=== PATIENT | female | born 1975 | race Caucasian/White ===

== ENCOUNTER 2020-12-17 14:06 | Emergency (ER) | payer OTHER ==
--- NOTE | 2020-12-17 15:34 | EDM.PDOC ---
ED HPI GENERAL MEDICAL PROBLEM - General Chief Complaint: Chest Pain Stated Complaint: COVID POSITIVE Time Seen by Provider: 12/17/20 14:45 Source of Information: Reports: Patient History Limitations: Reports: No Limitations - History of Present Illness INITIAL COMMENTS - FREE TEXT/NARRATIVE: 45-year-old female, unvaccinated for Covid, presents with 1 week of worsening cough and shortness of breath with positive Covid test. O2 sats are still normal but her respiratory rate is 30-31, she is having pleuritic-like chest pain, weakness and feels awful. Diaphoretic and dizzy. No nausea or vomiting, mild diarrhea. Decreased appetite. Onset: Gradual Duration: Day(s): (7 days of symptoms) Associated Symptoms: Reports: Chest Pain (Pleuritic-like chest pain, pain with breathing), Cough, Fever/Chills, Malaise, Shortness of Breath, Weakness Chest Pain Score (Numeric/FACES): 8 - Related Data Allergies Allergy/AdvReac Type Severity Reaction Status Date / Time No Known Allergies Allergy Verified 12/17/20 14:35 Home Meds: Home Meds Omeprazole 40 mg PO DAILY 12/17/20 [History] Simvastatin [Zocor] 10 mg PO DAILY 12/17/20 [History] atorvaSTATin [Lipitor] 10 mg PO DAILY 12/17/20 [History] busPIRone [Buspar] 10 mg PO BEDTIME 12/17/20 [History] hydroCHLOROthiazide [Hydrochlorothiazide] 12.5 mg PO DAILY 12/17/20 [History] norgestimate-ethinyl estradioL [Estarylla 0.25-0.035 mg Tablet] 1 each PO DAILY 12/17/20 [History] Past Medical History Cardiovascular History: Reports: Hypertension - Infectious Disease History Infectious Disease History: Reports: Chicken Pox Social & Family History - Tobacco Use Tobacco Use Status *Q: Never Tobacco User - Caffeine Use Caffeine Use: Reports: None - Recreational Drug Use Recreational Drug Use: No ED ROS GENERAL - Review of Systems Review Of Systems: See Below Constitutional: Reports: Fever, Chills, Malaise, Decreased Appetite HEENT: Denies: Throat Pain Respiratory: Reports: Shortness of Breath, Pleuritic Chest Pain, Cough. Denies: Sputum Cardiovascular: Reports: Chest Pain. Denies: Palpitations GI/Abdominal: Reports: Diarrhea, Nausea. Denies: Vomiting : Reports: No Symptoms Musculoskeletal: Reports: Muscle Pain (Generalized muscle aches) Skin: Denies: Rash Neurological: Reports: Dizziness, Weakness Psychiatric: Reports: No Symptoms ED EXAM, GENERAL - Physical Exam Exam: See Below Exam Limited By: No Limitations General Appearance: Alert, No Apparent Distress (Looks uncomfortable but in no distress, O2 saturations 97% and afebrile.) Eye Exam: Bilateral Eye: Normal Inspection Head: Atraumatic Neck: Supple, Non-Tender Respiratory/Chest: Other (Diffuse decreased breath sounds but no significant wheezes, rales or rhonchi) Cardiovascular: Regular Rate, Rhythm, Tachycardia GI/Abdominal: Soft, Non-Tender Extremities: No: Pedal Edema Neurological: Alert, Oriented Psychiatric: Flat Affect Skin Exam: Warm, Diaphoretic Course - Vital Signs Last Recorded V/S: Last Vital Signs Temp 97.6 F 12/17/20 16:46 Pulse 114 H 12/17/20 17:23 Resp 25 H 12/17/20 17:23 BP 123/83 12/17/20 17:23 Pulse Ox 98 12/17/20 17:23 - Orders/Labs/Meds Orders: Active Orders 24 hr Category Date Time Status Chest 1V Frontal [CR] Stat Exams 12/17/20 14:43 Taken EKG 12 Lead [EK] Routine Ther 12/17/20 14:48 Ordered Labs: Laboratory Tests 12/17/20 12/17/20 12/17/20 Range/Units 14:30 14:30 14:30 WBC 4.2 L (4.5-11.0) K/uL RBC 4.86 (3.30-5.50) M/uL Hgb 13.8 (12.0-15.0) g/dL Hct 42.6 (36.0-48.0) % MCV 88 (80-98) fL MCH 28 (27-31) pg MCHC 32 (32-36) % Plt Count 161 (150-400) K/uL Neut % (Auto) 70.7 H (36-66) % Lymph % (Auto) 18.5 L (24-44) % [place] % (Auto) 10.1 H (2-6) % Eos % (Auto) 0.2 L (2-4) % Baso % (Auto) 0.5 (0-1) % D-Dimer, Quantitative (0.0-500.0) ng/mL Sodium 137 L (140-148) mmol/L Potassium 3.5 L (3.6-5.2) mmol/L Chloride 101 (100-108) mmol/L Carbon Dioxide 23 (21-32) mmol/L Anion Gap 16.5 H (5.0-14.0) mmol/L BUN 14 (7-18) mg/dL Creatinine 0.9 (0.6-1.0) mg/dL Est Cr Clr Drug Dosing 66.73 mL/min Estimated GFR (MDRD) > 60 (>60) Glucose 128 H (74-106) mg/dL Calcium 8.4 L (8.5-10.1) mg/dL Troponin I < 0.017 (0.000-0.056) ng/mL C-Reactive Protein (0.0-0.3) mg/dL Procalcitonin ng/mL 12/17/20 12/17/20 12/17/20 Range/Units 14:30 14:30 14:30 WBC (4.5-11.0) K/uL RBC (3.30-5.50) M/uL Hgb (12.0-15.0) g/dL Hct (36.0-48.0) % MCV (80-98) fL MCH (27-31) pg MCHC (32-36) % Plt Count (150-400) K/uL Neut % (Auto) (36-66) % Lymph % (Auto) (24-44) % [place] % (Auto) (2-6) % Eos % (Auto) (2-4) % Baso % (Auto) (0-1) % D-Dimer, Quantitative 680.03 H (0.0-500.0) ng/mL Sodium (140-148) mmol/L Potassium (3.6-5.2) mmol/L Chloride (100-108) mmol/L Carbon Dioxide (21-32) mmol/L Anion Gap (5.0-14.0) mmol/L BUN (7-18) mg/dL Creatinine (0.6-1.0) mg/dL Est Cr Clr Drug Dosing mL/min Estimated GFR (MDRD) (>60) Glucose (74-106) mg/dL Calcium (8.5-10.1) mg/dL Troponin I (0.000-0.056) ng/mL C-Reactive Protein 3.29 H (0.0-0.3) mg/dL Procalcitonin < 0.05 ng/mL Meds: Medications Discontinued Medications Generic Name Dose Route Start Last Admin Trade Name Freq PRN Reason Stop Dose Admin Acetaminophen 650 mg 12/17/20 16:15 Acetaminophen 325 Mg Tab PO ONETIME PRN HEADACHE,CHILLS Diphenhydramine HCl 50 mg 12/17/20 16:15 Diphenhydramine 50 Mg/Ml Sdv IVPUSH ONETIME PRN ALLERGIC RXN Epinephrine HCl 0.3 mg 12/17/20 16:15 Epinephrine 1 Mg/Ml Sdv IM ONETIME PRN ALLERGIC RXN Famotidine 20 mg 12/17/20 16:15 Famotidine 20 Mg/2 Ml Sdv IV ONETIME PRN ALLERGIC RXN Bamlanivimab 700 mg/ 160 mls @ 310 mls/hr 12/17/20 16:15 12/17/20 16:07 Etesevimab 1,400 mg/ Sodium IV 12/17/20 16:45 310 mls/hr Chloride ONETIME ONE Administration Methylprednisolone Sodium Succinate 125 mg 12/17/20 16:15 Methylprednisolone Sodium Succinate 125 Mg/2 Ml Sdv IVPUSH ONETIME PRN ALLERGIC RXN - Re-Assessments/Exams Free Text/Narrative Re-Assessment/Exam: 12/17/20 15:33 Portable chest x-ray was obtained which showed a slight fullness of the right perihilar area, D-dimer is moderately elevated, white count is decreased, procalcitonin is 0 and CRP is 3.2. These are all typical findings of Covid. It was explained to the patient and she elected to have antibody therapy so this was arranged. 12/17/20 16:20 Patient tolerated antibody therapy and was encouraged to rest, stay hydrated, and she can return if she develops increased difficulty breathing over the next several days. Departure - Departure Time of Disposition: 18:01 Disposition: Home, Self-Care 01 Clinical Impression: Pneumonia due to COVID-19 virus - Discharge Information Instructions: COVID-19 Referrals: Christy Leal PA [Primary Care Provider] - Forms: ED Department Discharge Care Plan Goals: Rest, fluids, ibuprofen or naproxen for general body aches or fever, and increase activity as tolerated. Return if worsening such as increased difficulty breathing despite your recent antibody therapy Sepsis Event Note (ED) - Evaluation Sepsis Screening Result: Possible Sepsis Risk - Focused Exam Vital Signs: Vital Signs Temp Pulse Resp BP Pulse Ox 12/17/20 17:23 114 H 25 H 123/83 98 12/17/20 16:46 97.6 F 111 H 22 H 132/81 98 12/17/20 16:22 97.6 F 112 H 19 140/77 97 12/17/20 16:08 97.8 F 118 H 20 136/83 98 12/17/20 14:30 97.2 F 133 H 31 H 133/74 97 - My Orders Last 24 Hours: My Active Orders 12/17/20 14:43 Chest 1V Frontal [CR] Stat 12/17/20 14:48 EKG 12 Lead [EK] Routine - Assessment/Plan Last 24 Hours: My Active Orders 12/17/20 14:43 Chest 1V Frontal [CR] Stat 12/17/20 14:48 EKG 12 Lead [EK] Routine
[2020-12-17] MEDS ORDERED: diphenhydrAMINE 50 MG/ML SDV IVPUSH PRN (16:15)
[2020-12-17] MEDS ORDERED: EPINEPHrine 1 MG/ML SDV IM PRN (16:15)
[2020-12-17] MEDS ORDERED: Famotidine 20 MG/2 ML SDV IV PRN (16:15)
[2020-12-17] MEDS ORDERED: Bamlanivimab 700 MG, ETESEVIMAB 1,400 MG in Sodium Chloride 0.9% 100 ML IV ONE (16:15)
[2020-12-17] MEDS ORDERED: Acetaminophen 325 MG Tab PO PRN (16:15)
[2020-12-17] MEDS ORDERED: methylPREDNISolone Sodium Succinate 125 MG/2 ML SDV IVPUSH PRN (16:15)
--- NOTE | 2020-12-18 10:16 | CR ---
CHEST: Portable 12/17/2020 at 321 CLINICAL HISTORY:Cough and fever COMPARISON:None FINDINGS: Heart size and pulmonary vascularity are normal. There is patchy bilateral lower lobe infiltrates greater on the right. Impression: Bilateral lower lobe pneumonic infiltrates.
== END 2020-12-17 18:02 | disposition home or self-care (01) ==
LOC: JP.ED 14:06
DX: U07.1 COVID-19 (principal); J12.82 Pneumonia due to coronavirus disease 2019; I10 Essential (primary) hypertension; Z79.899 Other long term (current) drug therapy
CPT/HCPCS: 36415; 71045; 80048; 84145; 84484; 85025; 85379; 86140; 93005; 99285; M0245; Q0245

== ENCOUNTER 2024-11-02 11:36 | Emergency (ER) | payer OTHER | END 2024-11-02 13:44 | disposition home or self-care (01) | LOC: JP.ED 11:36 | DX: S06.0XAA Concussion with loss of consciousness status unknown, initial encounter (principal); I10 Essential (primary) hypertension; E78.00 Pure hypercholesterolemia, unspecified; M19.90 Unspecified osteoarthritis, unspecified site; Z79.899 Other long term (current) drug therapy; Z87.891 Personal history of nicotine dependence; W18.41XA Slipping, tripping and stumbling without falling due to stepping on object, initial encounter | CPT/HCPCS: 70450; 70450-26; 99283 ==